=== PATIENT | female | born 1985 | race Caucasian/White ===

== ENCOUNTER 2019-11-16 21:22 | Emergency (ER) | payer MEDICARE, MEDICAID ==
[~2019-11-16] VITALS: Ht 165.1 cm; Wt 90.7 kg
[~2019-11-16 21:22] MED LIST: ABILIFY; ACETAMINOPHEN-1 EAC1 PO; ADDERALL PO; CLONAZEPAM; DESYREL; INVEGA SUS78 MG/0.5 IM; NORCO 5-325 TA1 EACH PO; PREDNISONE50 MG PO; ZPAK PO
[2019-11-16] MEDS ORDERED: [UNRECOGNIZED DRUG - OTHER] (21:31)
[2019-11-16] MEDS ORDERED: MOBIC15 MG PO (23:12)
[2019-11-16] MEDS ORDERED: ROBAXIN 750 MG750 MG PO (23:12)
[2019-11-16 23:30] VITALS: BP 110/72
== END 2019-11-16 23:30 | disposition home or self-care (01) ==
LOC: M.ERS 21:22
DX: M79.18 Myalgia, other site (principal); F17.210 Nicotine dependence, cigarettes, uncomplicated; Z88.0 Allergy status to penicillin; Z88.2 Allergy status to sulfonamides; Z88.8 Allergy status to other drugs, medicaments and biological substances; V89.2XXA Person injured in unspecified motor-vehicle accident, traffic, initial encounter; Y93.89 Activity, other specified; Y92.89 Other specified places as the place of occurrence of the external cause; Y99.8 Other external cause status

== ENCOUNTER 2020-06-07 20:16 | Emergency (ER) | payer MEDICARE, MEDICAID ==
[~2020-06-07] VITALS: Ht 165.1 cm; Wt 90.7 kg
[~2020-06-07 20:16] MED LIST changes: +MOBIC15 MG PO; +ROBAXIN 750 MG750 MG PO; +[UNRECOGNIZED DRUG - OTHER]
[2020-06-07] MEDS ORDERED: KEFLEX500 M1 PO (20:56)
[2020-06-07] MEDS ORDERED: CIPRODEX OTIC7.5 ML OTIC (20:56)
[2020-06-07] MEDS ORDERED: HYDROCODON-ACE1 EAC8 PO (20:56)
[2020-06-07 21:12] VITALS: BP 143/84
== END 2020-06-07 21:13 | disposition home or self-care (01) ==
LOC: M.ERS 20:16
DX: H60.91 Unspecified otitis externa, right ear (principal); H66.91 Otitis media, unspecified, right ear; F12.90 Cannabis use, unspecified, uncomplicated; Z88.5 Allergy status to narcotic agent; Z88.0 Allergy status to penicillin; Z88.2 Allergy status to sulfonamides; Z79.899 Other long term (current) drug therapy